=== PATIENT | male | born 1970 | race Caucasian/White ===

== ENCOUNTER 2017-08-19 20:16 | Emergency (ER) | payer BC ==
[2017-08-19] MEDS ORDERED: Oseltamivir CAP* 75 MG PO ONE (21:23)
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
[2017-08-19 21:54] VITALS: BP 136/92
== END 2017-08-19 21:36 | disposition home or self-care (01) ==
LOC: UCEAST 20:16
DX: J09.X2 Influenza due to identified novel influenza A virus with other respiratory manifestations (principal); R05 Cough; Z20.828 Contact with and (suspected) exposure to other viral communicable diseases; E11.9 Type 2 diabetes mellitus without complications; Z79.84 Long term (current) use of oral hypoglycemic drugs; Z72.89 Other problems related to lifestyle
CPT/HCPCS: 87502; 87651; 99212; A9270-GY; G0463